=== PATIENT | male | born 1950 | race Caucasian/White ===

== ENCOUNTER 2017-11-08 21:03 | Emergency (ER) | payer MEDICARE, OTHER ==
[~2017-11-08] VITALS: Ht 180.3 cm; Wt 120.2 kg
[~2017-11-08 21:03] MED LIST: ASPIRIN81 M1 PO; BENAZEPRIL-HCT1 EAC2 PO; LANSOPRAZOLE30 MG PO; METFORMIN HCL500 MG PO; NIASPAN500 MG PO; VITAMIN D31000 UNIT PO
[2017-11-08] MEDS ORDERED: JANUMET XR 1001 EACH PO (21:29)
[2017-11-08] MEDS ORDERED: LANSOPRAZOLE30 MG PO (21:30)
[2017-11-08] MEDS ORDERED: ATORVASTATIN CA20 MG PO (21:31)
[2017-11-08] MEDS ORDERED: PROPRANOLOL HCL10 MG PO (21:31)
[2017-11-08 21:45] LABS: BASOPHILS # (AUTO) 0.1 (0.0-0.1); BASOPHILS % 0.5 % (0.0-1.0); EOSINOPHILS # (AUTO) 0.5 (0.0-0.4); EOSINOPHILS % 4.5 % (0.0-6.0); HEMATOCRIT 46.1 % (38.2-49.6); HEMOGLOBIN 15.8 g/dL (14.0-18.0); LYMPHOCYTES # (AUTO) 3.9 (1.0-3.2); MEAN CORPUSCULAR HEMOGLOBIN 31.3 pg (28-32); MEAN CORPUSCULAR HGB CONC 34.3 g/dL (31-35); MEAN CORPUSCULAR VOLUME 91.5 fL (81-99); MONOCYTES # (AUTO) 0.7 (0.2-0.8); MONOCYTES % 6.7 % (4.4-11.3); NEUTROPHILS # (AUTO) 4.9 (2.1-6.9); NEUTROPHILS % 48.7 % (38.7-80.0); PLATELET COUNT 249 x10e3/uL (140-360); RED BLOOD COUNT 5.04 x10e6/uL (4.3-5.7); RED CELL DISTRIBUTION WIDTH 12.7 % (11.7-14.4)
[2017-11-08 22:07] LABS: ALBUMIN 3.6 g/dL (3.5-5.0); ALBUMIN/GLOBULIN RATIO 0.9 (0.8-2.0); ANION GAP 15.6 mmol/L (8-16); CALCIUM 9.9 mg/dL (8.4-10.2); CREATININE, SERUM 1.72 mg/dL (0.72-1.25); POTASSIUM 3.6 mmol/L (3.5-5.1)
[2017-11-08 22:13] LABS: CREATINE KINASE MB 1.8 ng/mL (0-5.0)
--- NOTE | 2017-11-08 22:50 | Diagnostic Imaging Report ---
CHEST SINGLE (PORTABLE), 11/08/2017 9:13 PM Technique: CHEST SINGLE (PORTABLE) Comparison: 01/27/2012 Clinical history: Chest pain Findings: Stable cardiomediastinal silhouette given differences in technique. Low lung volumes without consolidation or edema. No effusion or pneumothorax. Impression: 1. Lines/Tubes: None 2. No acute abnormality. Signed by: Dr Christiane Saenz MD on 11/08/2017 10:47 PM
[2017-11-08 23:03] VITALS: BP 104/62
== END 2017-11-08 23:18 | disposition home or self-care (01) ==
LOC: ER 21:03
DX: R06.09 Other forms of dyspnea (principal); R42 Dizziness and giddiness; I10 Essential (primary) hypertension; E11.9 Type 2 diabetes mellitus without complications; E78.5 Hyperlipidemia, unspecified
CPT/HCPCS: 36415; 71045; 80053; 82550; 82553; 84484; 85025; 93005; 99284

== ENCOUNTER 2018-09-09 21:06 | Emergency (ER) | payer MEDICARE ==
[~2018-09-09] VITALS: Ht 180.3 cm; Wt 120.2 kg
[~2018-09-09 21:06] MED LIST changes: +ATORVASTATIN CA20 MG PO; +JANUMET XR 1001 EACH PO; +PROPRANOLOL HCL10 MG PO
--- OUTSIDE RECORDS SUMMARY | 2018-09-09 21:10 | XMS REPORT ---
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 Allergies, Adverse Reactions, Alerts This patient has no known allergies or adverse reactions. Medications This patient has no known medications. Results Test Description Test Time Test Comments Text Results Atomic Results Result Comments CHEST SINGLE (PORTABLE) 2017-11-08 22:46:00 [place] [address] Patient Name: PANKAJ PEREZ MR #: [id number] : 1950 Age/Sex: 67/M Req #: [id number] [facility] Physician: Ordered by: OBINNA BRADLEY MD Report #: [id number] Location: ER Room/Bed: Procedure: [id number] DX/CHEST SINGLE (PORTABLE) Exam Date: 11/08/17 Exam Time: 2145 REPORT STATUS: Signed CHEST SINGLE (PORTABLE), 11/08/2017 9:13 PM Technique: CHEST SINGLE (PORTABLE) Comparison: 01/27/2012 Clinical history: Chest pain Findings: Stable cardiomediastinal silhouette given differences in technique. Low lung volumes without consolidation or edema. No effusion or pneumothorax. Impression: 1. Lines/Tubes: None 2. No acute abnormality. Signed by: Dr Leopoldo Saenz MD on 11/08/2017 10:47 PM Dictated By: LEOPOLDO SEANZ MD 46 Transcribed By: KATHRYN on 11/08/172246 COPY TO: OBINNA BRADLEY MD RAD, CHEST, 2 VIEWS 2017-10-28 10:45:00 Reason for Exam:->sob FINAL REPORT TECHNIQUE: Frontal and lateral views of the chest. INDICATION: 67-year-old man with shortness of breath. COMPARISON: Chest radiographs 08/30/2012. FINDINGS: LINES/TUBES: None. LUNGS: The lungs are well inflated and clear. PLEURA: No pleural effusion or pneumothorax. Unchanged mild pleural thickening on the left. HEART AND MEDIASTINUM: The cardiomediastinal silhouette is within normal limits. SOFT TISSUES AND BONES: Unremarkable. IMPRESSION:No acute cardiopulmonary abnormalities. No significant change since 08/30/2012. Signed: Belem Alonso MDReport Verified Date/Time: 10/28/2017 10:45:18 Reading Location: [address] Radiology Reading Room
--- OUTSIDE RECORDS SUMMARY | 2018-09-09 21:10 | XMS REPORT | Clinical Summary ---
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 Name Role Phone PCP Unavailable Allergies Not on File Medications Not on file Active Problems Not on file Encounters Care Team Description Date Type Specialty Royer Tomas MD SOB (shortness of breath) 10/28/2017 Hospital Encounter Royer Tomas MD SOB (shortness of breath) (Primary Dx) 10/23/2017 Outside Orders Central Scheduling after 09/08/2017 Social History Date Tobacco Use Types Packs/Day Years Used Never Assessed Sex Assigned at Date Recorded Not on file Industry Job Start Date Occupation Not on file Not on file Not on file Travel End Travel History Travel Start No recent travel history available. Last Filed Vital Signs Not on file Plan of Treatment Not on file Procedures Comments Procedure Name Priority Date/Time Associated Diagnosis XR CHEST 2 VIEWS Routine 10/28/2017 SOB (shortness of breath) 7:39 AM CDT after 09/08/2017 Results * XR Chest 2 Views (10/28/2017 7:39 AM CDT) Specimen Narrative Performed At FINAL REPORT [facility] TECHNIQUE: Frontal and lateral views of the chest. INDICATION: 67-year-old man with shortness of breath. COMPARISON: Chest radiographs 08/30/2012. FINDINGS: LINES/TUBES: None. LUNGS: The lungs are well inflated and clear. PLEURA: No pleural effusion or pneumothorax. Unchanged mild pleural thickening on the left. HEART AND MEDIASTINUM: The cardiomediastinal silhouette is within normal limits. SOFT TISSUES AND BONES: Unremarkable. IMPRESSION: No acute cardiopulmonary abnormalities. No significant change since 08/30/2012. Signed: Belem Alonso MD Report Verified Date/Time:10/28/2017 10:45:18 Reading Location: [facility] [address] [facility] Radiology Reading Room Procedure Note Interface, External Ris In - 10/28/2017 10:47 AM CDT FINAL REPORT TECHNIQUE: Frontal and lateral views of the chest. INDICATION: 67-year-old man with shortness of breath. COMPARISON: Chest radiographs 08/30/2012. FINDINGS: LINES/TUBES: None. LUNGS: The lungs are well inflated and clear. PLEURA: No pleural effusion or pneumothorax. Unchanged mild pleural thickening on the left. HEART AND MEDIASTINUM: The cardiomediastinal silhouette is within normal limits. SOFT TISSUES AND BONES: Unremarkable. IMPRESSION: No acute cardiopulmonary abnormalities. No significant change since 08/30/2012. Signed: Belem Alonso MD Report Verified Date/Time: 10/28/2017 10:45:18 Reading Location: [address] Radiology Reading Room Performing Organization Address City/State/Zipcode Phone Number GE RIS after 09/08/2017 Insurance Payer Benefit Subscriber ID Type Phone Address Plan / Group [facility] xxxxxxxxx MEDICARE MGD CARE MEDICARE HMO
[2018-09-09] MEDS ORDERED: LIDOCAINE 5% PATCH TP ONE (22:15)
[2018-09-09] MEDS ORDERED: HYDROCODONE/APAP 10MG-325MG TAB PO ONE (22:15)
--- NOTE | 2018-09-09 22:56 | Diagnostic Imaging Report ---
EXAMINATION: CHEST SINGLE (PORTABLE) INDICATION: FALL; R/O FRACTURE COMPARISON: Chest radiograph 11/08/2017 FINDINGS: AP view TUBES and LINES: None. LUNGS: Lungs are well inflated. Lungs are clear. There is no evidence of pneumonia or pulmonary edema. PLEURA: No pleural effusion or pneumothorax. HEART AND MEDIASTINUM: The cardiomediastinal silhouette is accentuated due to technique. BONES AND SOFT TISSUES: No acute osseous lesion. Soft tissues are unremarkable. UPPER ABDOMEN: No free air under the diaphragm. IMPRESSION: No acute thoracic abnormality. Similar exam compared to 11/08/2017. Signed by: Oracio Walden DO on 09/09/2018 10:52 PM
--- NOTE | 2018-09-09 22:57 | Diagnostic Imaging Report ---
SHOULDER LEFT COMPLETE - 2 views HISTORY: Pain. COMPARISON: None available. FINDINGS: Bones: No acute displaced fracture. Osseous alignment is within normal limits. Joints: Narrow subacromial space . Degenerative changes in the acromioclavicular joint. Soft tissues: The soft tissues appear unremarkable. IMPRESSION: No displaced fracture. Narrow subacromial space is suspicious for rotator cuff pathology. Degenerative changes in shoulder. Signed by: Oracio Walden DO on 09/09/2018 10:54 PM
[2018-09-09] MEDS ORDERED: ULTRAM50 MG PO (23:28)
== END 2018-09-09 23:45 | disposition home or self-care (01) ==
LOC: ER 21:06
DX: M25.512 Pain in left shoulder (principal); S43.102A Unspecified dislocation of left acromioclavicular joint, initial encounter; W01.0XXA Fall on same level from slipping, tripping and stumbling without subsequent striking against object, initial encounter; Y93.01 Activity, walking, marching and hiking; Y92.830 Public park as the place of occurrence of the external cause
CPT/HCPCS: 71045; 99283

== ENCOUNTER → 2020-05-11 | Day surgery (SDC) | payer MEDICARE ==
[2020-05-08 08:22] LABS: BASOPHILS # (AUTO) 0.1 (0.0-0.1); BASOPHILS % 0.6 % (0.0-1.0); EOSINOPHILS # (AUTO) 0.3 (0.0-0.4); EOSINOPHILS % 4.2 % (0.0-6.0); HEMATOCRIT 42.9 % (38.2-49.6); HEMOGLOBIN 14.6 g/dL (14.0-18.0); LYMPHOCYTES # (AUTO) 2.5 (1.0-3.2); LYMPHOCYTES % 30.8 % (18.0-39.1); MEAN CORPUSCULAR HEMOGLOBIN 30.7 pg (28-32); MEAN CORPUSCULAR VOLUME 90.1 fL (81-99); MONOCYTES # (AUTO) 0.7 (0.2-0.8); MONOCYTES % 8.5 % (4.4-11.3); NEUTROPHILS # (AUTO) 4.4 (2.1-6.9); NEUTROPHILS % 55.4 % (38.7-80.0); PLATELET COUNT 226 x10e3/uL (140-360); RED BLOOD COUNT 4.76 x10e6/uL (4.3-5.7); RED CELL DISTRIBUTION WIDTH 12.3 % (11.7-14.4)
[~2020-05-11] MED LIST changes: +ASPIRIN81 MG PO; +FENTANYL CITRATE/PF 100MCG/2 ML INJ ONE; +HYOSCYAMINE SULFATE 0.5 MG/ML INJ ONE; +KETAMINE HCL INJ 50 MG/ML 10 ML VIAL ONE; +LISINOPRIL-HCT1 EACH PO; +LISINOPRIL10 MG PO; +LIVALO2 MG PO; +MIDAZOLAM HCL 2 MG/2 ML VIAL ONE; +PROPOFOL IV EMULSION 10 MG/ML 20 ML VIAL ONE; +TORSEMIDE10 MG PO; +ULTRAM50 MG PO
[2020-05-11 11:50] VITALS: BP 118/80
== END | disposition home or self-care (01) ==
LOC: OR 07:42
PROVIDERS: ATTEND Internal Medicine Gastroenterology
DX: K29.50 Unspecified chronic gastritis without bleeding (principal); D12.4 Benign neoplasm of descending colon; K31.7 Polyp of stomach and duodenum; K20.90 Esophagitis, unspecified without bleeding; K44.9 Diaphragmatic hernia without obstruction or gangrene; K21.9 Gastro-esophageal reflux disease without esophagitis; K57.30 Diverticulosis of large intestine without perforation or abscess without bleeding; K64.8 Other hemorrhoids; G47.33 Obstructive sleep apnea (adult) (pediatric); I49.3 Ventricular premature depolarization; I10 Essential (primary) hypertension; E78.5 Hyperlipidemia, unspecified; E11.9 Type 2 diabetes mellitus without complications; Z01.810 Encounter for preprocedural cardiovascular examination; Z01.812 Encounter for preprocedural laboratory examination; Z20.822 Contact with and (suspected) exposure to COVID-19; Z79.82 Long term (current) use of aspirin; Z79.84 Long term (current) use of oral hypoglycemic drugs; Z68.36 Body mass index [BMI] 36.0-36.9, adult
CPT/HCPCS: 36415 ×2; 43239; 45380; 45385; 82948; 85025; 93005; J1980; J2250; J2704; J3010; U0002; 45378

== ENCOUNTER 2021-03-15 13:42 | Observation (INO) | payer MEDICARE ==
[~2021-03-15] VITALS: Ht 180.3 cm; Wt 122.5 kg
[2021-03-15] VITALS (7 sets, daily range): BP systolic 136–162; BP diastolic 76–99
[~2021-03-15 13:42] MED LIST changes: -FENTANYL CITRATE/PF 100MCG/2 ML INJ ONE; -HYOSCYAMINE SULFATE 0.5 MG/ML INJ ONE; -KETAMINE HCL INJ 50 MG/ML 10 ML VIAL ONE; -MIDAZOLAM HCL 2 MG/2 ML VIAL ONE; -PROPOFOL IV EMULSION 10 MG/ML 20 ML VIAL ONE
[2021-03-15 14:17] LABS: BASOPHILS # (AUTO) 0.1 (0.0-0.1); BASOPHILS % 0.9 % (0.0-1.0); EOSINOPHILS # (AUTO) 0.3 (0.0-0.4); EOSINOPHILS % 3.9 % (0.0-6.0); HEMOGLOBIN 15.3 g/dL (14.0-18.0); LYMPHOCYTES # (AUTO) 2.9 (1.0-3.2); LYMPHOCYTES % 38.2 % (18.0-39.1); MEAN CORPUSCULAR HEMOGLOBIN 29.4 pg (28-32); MEAN CORPUSCULAR HGB CONC 32.6 g/dL (31-35); MEAN CORPUSCULAR VOLUME 90.4 fL (81-99); MONOCYTES # (AUTO) 0.6 (0.2-0.8); MONOCYTES % 7.4 % (4.4-11.3); NEUTROPHILS # (AUTO) 3.7 (2.1-6.9); NEUTROPHILS % 49.1 % (38.7-80.0); PLATELET COUNT 254 x10e3/uL (140-360); RED CELL DISTRIBUTION WIDTH 12.7 % (11.7-14.4)
[2021-03-15 14:22] LABS: CLARITY,URINE SL CLOUDY (CLEAR); COLOR,URINE YELLOW (YELLOW); KETONES,URINE NEGATIVE (NEGATIVE); LEUKOCYTE ESTERASE ,URINE NEGATIVE (NEGATIVE); NITRITE,URINE NEGATIVE (NEGATIVE); PROTEIN,URINE DIPSTICK NEGATIVE (NEGATIVE); URINE UROBILINOGEN 0.2 mg/dL (0.2 - 1)
[2021-03-15 14:32] LABS: ALBUMIN 3.5 g/dL (3.5-5.0); ALBUMIN/GLOBULIN RATIO 0.9 (0.8-2.0); CALCIUM 9.2 mg/dL (8.4-10.2); CREATININE, SERUM 1.27 mg/dL (0.72-1.25)
[2021-03-15 14:34] LABS: BACTERIA,URINE RARE /HPF
[2021-03-15] MEDS ORDERED: DEXTROSE 50% SYRINGE 50 ML IV PRN (17:45)
[2021-03-15] MEDS: SODIUM CHLORIDE 0.9% 1000ML 1,000 ML IV SCH (17:45)
[2021-03-15] MEDS: INSULIN LISPRO 100 UNIT/1 ML 3ML VIAL SQ SCH (20:48)
[2021-03-15] MEDS ORDERED: NON-FORMULARY MEDICATION (Lansoprazole 30 MG) PO SCH (21:45)
[2021-03-16 00:30] VITALS: BP 133/79
[2021-03-16] MEDS: SODIUM CHLORIDE 0.9% 1000ML 1,000 ML IV SCH (01:57)
[2021-03-16 05:14] VITALS: BP 132/81
[2021-03-16] MEDS ORDERED: LISINOPRIL10 MG PO (05:49)
[2021-03-16] MEDS ORDERED: PANTOPRAZOLE SOD 40 MG TABEC PO PRN (06:00)
[2021-03-16 06:51] LABS: BASOPHILS # (AUTO) 0.1 (0.0-0.1); BASOPHILS % 0.8 % (0.0-1.0); EOSINOPHILS # (AUTO) 0.2 (0.0-0.4); EOSINOPHILS % 3.5 % (0.0-6.0); HEMATOCRIT 42.6 % (38.2-49.6); LYMPHOCYTES # (AUTO) 2.4 (1.0-3.2); LYMPHOCYTES % 39.3 % (18.0-39.1); MEAN CORPUSCULAR HEMOGLOBIN 29.4 pg (28-32); MEAN CORPUSCULAR HGB CONC 32.9 g/dL (31-35); MEAN CORPUSCULAR VOLUME 89.5 fL (81-99); MONOCYTES # (AUTO) 0.6 (0.2-0.8); MONOCYTES % 8.9 % (4.4-11.3); NEUTROPHILS # (AUTO) 2.9 (2.1-6.9); NEUTROPHILS % 47.2 % (38.7-80.0); PLATELET COUNT 180 x10e3/uL (140-360); RED BLOOD COUNT 4.76 x10e6/uL (4.3-5.7); RED CELL DISTRIBUTION WIDTH 12.6 % (11.7-14.4)
[2021-03-16 07:16] LABS: CALCIUM 8.6 mg/dL (8.4-10.2); CREATININE, SERUM 1.01 mg/dL (0.72-1.25)
[2021-03-16] MEDS: INSULIN LISPRO 100 UNIT/1 ML 3ML VIAL SQ SCH ×2 (07:30→11:30)
[2021-03-16 08:15] VITALS: BP 157/77
[2021-03-16] MEDS ORDERED: PROPRANOLOL HCL 10 MG TAB PO SCH (09:00)
[2021-03-16] MEDS: METFORMIN HCL 500 MG TAB PO SCH ×2 (09:58→10:30)
[2021-03-16] MEDS: SITAGLIPTIN 100 MG TAB PO SCH ×2 (09:59→10:30)
[2021-03-16 11:30] VITALS: BP 152/77
[2021-03-16] MEDS ORDERED: AMLODIPINE BESYL5 MG PO (13:31)
[2021-03-16] MEDS ORDERED: ASPIRIN 81 MG CHEW TAB PO SCH (21:00)
== END 2021-03-16 15:02 | disposition home or self-care (01) ==
LOC: ER 13:47 → ERHOLD 14:51 → MED/SURG2 16:18
DX: R55 Syncope and collapse (principal); I10 Essential (primary) hypertension; E11.9 Type 2 diabetes mellitus without complications; E78.5 Hyperlipidemia, unspecified; N28.9 Disorder of kidney and ureter, unspecified; I16.0 Hypertensive urgency; E66.9 Obesity, unspecified; Z68.37 Body mass index [BMI] 37.0-37.9, adult; E86.1 Hypovolemia; G25.0 Essential tremor; Z79.82 Long term (current) use of aspirin; Z20.822 Contact with and (suspected) exposure to COVID-19
CPT/HCPCS: 36415 ×2; 70450; 71045; 80048; 80053; 81001; 82948 ×2; 84484; 85025 ×2; 93005; 99284; G0378 ×2; J7030 ×2; U0002

== ENCOUNTER → 2022-01-27 | Outpatient (CLI) | payer MEDICARE ==
[~2022-01-27] MED LIST changes: +AMLODIPINE BESYL5 MG PO
== END ==
LOC: RAD 12:55
DX: M79.605 Pain in left leg (principal); M79.89 Other specified soft tissue disorders; E11.9 Type 2 diabetes mellitus without complications; I10 Essential (primary) hypertension

== ENCOUNTER → 2022-01-28 | Outpatient (CLI) | payer MEDICARE | LOC: RAD 08:41 | DX: M79.605 Pain in left leg (principal); M79.89 Other specified soft tissue disorders; E11.9 Type 2 diabetes mellitus without complications; I10 Essential (primary) hypertension | CPT/HCPCS: 93971 ==

== ENCOUNTER 2023-10-15 21:53 | Emergency (ER) | payer MEDICARE ==
[~2023-10-15] VITALS: Ht 177.8 cm; Wt 105.2 kg
[2023-10-15 22:21] VITALS: TEMP 98.2
[2023-10-15 23:01] LABS: BASOPHILS % 0.3 % (0.0-1.0); EOSINOPHILS # (AUTO) 1.1 (0.0-0.4); HEMOGLOBIN 15.3 g/dL (14.0-18.0); LYMPHOCYTES # (AUTO) 3.7 (1.0-3.2); LYMPHOCYTES % 39.5 % (18.0-39.1); MEAN CORPUSCULAR HEMOGLOBIN 31.3 pg (28-32); MONOCYTES # (AUTO) 0.7 (0.2-0.8); MONOCYTES % 7.6 % (4.4-11.3); NEUTROPHILS # (AUTO) 3.7 (2.1-6.9); PLATELET COUNT 218 x10e3/uL (140-360); RED BLOOD COUNT 4.89 x10e6/uL (4.3-5.7); RED CELL DISTRIBUTION WIDTH 13.2 % (11.7-14.4); WHITE BLOOD COUNT 9.36 x10e3/uL (4.8-10.8)
[2023-10-15] MEDS: SODIUM CHLORIDE 0.9% 1000ML 1,000 ML IV ONE (23:05)
[2023-10-15 23:30] LABS: ALBUMIN 3.2 g/dL (3.5-5.0); ANION GAP 11.9 mmol/L (8-16); BILIRUBIN,TOTAL 0.5 mg/dL (0.2-1.2); CREATININE, SERUM 1.42 mg/dL (0.72-1.25); POTASSIUM 3.9 mmol/L (3.5-5.1); TOTAL PROTEIN 6.4 g/dL (6.5-8.1)
[2023-10-16] MEDS: SODIUM CHLORIDE 0.9% 1000ML 1,000 ML IV ONE (00:01)
[2023-10-16] MEDS ORDERED: SODIUM CHLORIDE 0.9% 1000ML 1,000 ML ONE (00:03)
[2023-10-16 01:00] VITALS: PULSE 62; RESP 18
[2023-10-16 01:52] VITALS: BP 92/63; O2SAT 98
== END 2023-10-16 01:30 | disposition home or self-care (01) ==
LOC: ER 21:58
DX: I95.1 Orthostatic hypotension (principal); E86.9 Volume depletion, unspecified; R42 Dizziness and giddiness; M54.50 Low back pain, unspecified; E11.65 Type 2 diabetes mellitus with hyperglycemia; I10 Essential (primary) hypertension; E78.5 Hyperlipidemia, unspecified; K21.9 Gastro-esophageal reflux disease without esophagitis; R94.31 Abnormal electrocardiogram [ECG] [EKG]
CPT/HCPCS: 36415; 80053; 82948; 84484; 85025; 93005; 99284; J7030 ×2

== ENCOUNTER 2024-09-19 09:46 | Observation (INO) | payer MEDICARE ==
[2024-09-19] VITALS (8 sets, daily range): BP systolic 114–140; BP diastolic 61–79; PULSE 60–64; RESP 16–22; TEMP 97.3–98.1; O2SAT 98–100
[~2024-09-19] VITALS: Ht 177.8 cm; Wt 108.9 kg
[2024-09-19] MEDS: SODIUM CHLORIDE 0.9% 1000ML 1,000 ML IV STA (11:49)
[2024-09-19 11:52] LABS: BASOPHILS % 0.4 % (0.0-1.0); EOSINOPHILS % 2.1 % (0.0-6.0); LYMPHOCYTES % 35.1 % (18.0-39.1); MONOCYTES % 8.2 % (4.4-11.3); NEUTROPHILS % 53.8 % (38.7-80.0); RED CELL DISTRIBUTION WIDTH 12.9 % (11.7-14.4)
[2024-09-19 12:10] LABS: INR 0.89
[2024-09-19 12:22] LABS: EST GLOMERULAR FILTRATION RATE 68.0 ML/MIN (>=60)
[2024-09-19] MEDS: SODIUM CHLORIDE 0.9% 1000ML 1,000 ML IV SCH (13:24)
[2024-09-19] MEDS: ASPIRIN 81 MG CHEW TAB PO ONE (13:24)
[2024-09-19] MEDS ORDERED: PRIMIDONE125 MG PO (13:26)
[2024-09-19] MEDS ORDERED: OLMESARTAN-HCT1 EAC1 PO (13:26)
[2024-09-20 00:13] VITALS: BP 111/58; PULSE 56; RESP 18; TEMP 98; O2SAT 99
[2024-09-20 05:32] VITALS: BP 122/64; PULSE 59; RESP 20; TEMP 97.9; O2SAT 98
[2024-09-20 07:01] LABS: BASOPHILS % 0.6 % (0.0-1.0); EOSINOPHILS % 4.0 % (0.0-6.0); LYMPHOCYTES % 35.6 % (18.0-39.1); MONOCYTES % 6.4 % (4.4-11.3); NEUTROPHILS % 53.1 % (38.7-80.0); RED CELL DISTRIBUTION WIDTH 12.6 % (11.7-14.4)
[2024-09-20 07:37] LABS: CHOL/HDL RATIO 3.9 (3.9-4.7); EST GLOMERULAR FILTRATION RATE 79.0 ML/MIN (>=60)
[2024-09-20 07:57] LABS: LDL CHOLESTEROL 71.0 MG/DL (60-130)
[2024-09-20 08:21] VITALS: BP 140/91; PULSE 60; RESP 20; TEMP 98; O2SAT 99
[2024-09-22] MEDS ORDERED: [UNRECOGNIZED DRUG - OTHER] (15:19)
[2024-09-22] MEDS ORDERED: REZDIFFRA PO (15:20)
[2024-09-22] MEDS ORDERED: LOSARTAN POTASS25 MG PO (15:26)
[2024-09-22] MEDS ORDERED: VASCEPA0.5 GM (15:26)
[2024-09-22] MEDS ORDERED: OZEMPIC2 MG/0.75 (15:26)
[2024-09-22] MEDS ORDERED: LANSOPRAZOLE30 MG (15:26)
[2024-09-22] MEDS ORDERED: JARDIANCE10 MG (15:26)
== END 2024-09-20 11:00 | disposition home or self-care (01) ==
LOC: ER 11:11 → ERHOLD 12:11 → MED/SURG2 12:52
PROVIDERS: ADMIT Internal Medicine; ATTEND Internal Medicine
DX: R55 Syncope and collapse (principal); N28.9 Disorder of kidney and ureter, unspecified; T46.5X5A Adverse effect of other antihypertensive drugs, initial encounter; T50.2X5A Adverse effect of carbonic-anhydrase inhibitors, benzothiadiazides and other diuretics, initial encounter; R79.89 Other specified abnormal findings of blood chemistry; I13.0 Hypertensive heart and chronic kidney disease with heart failure and stage 1 through stage 4 chronic kidney disease, or unspecified chronic kidney disease; N18.2 Chronic kidney disease, stage 2 (mild); I50.32 Chronic diastolic (congestive) heart failure; E11.9 Type 2 diabetes mellitus without complications; Z79.84 Long term (current) use of oral hypoglycemic drugs; G47.33 Obstructive sleep apnea (adult) (pediatric); E78.5 Hyperlipidemia, unspecified; K76.0 Fatty (change of) liver, not elsewhere classified
CPT/HCPCS: 36415 ×2; 71045; 80053 ×2; 80061; 82550 ×2; 82948 ×2; 83735; 84443; 84484 ×2; 85025 ×2; 85610; 85730; 93005; 99284; G0378 ×2; J7030 ×2

== ENCOUNTER → 2024-10-06 | Day surgery (SDC) | payer MEDICARE ==
[~2024-10-06] MED LIST changes: +HYOSCYAMINE SULFATE 0.5 MG/ML INJ ONE; +JARDIANCE10 MG; +LANSOPRAZOLE30 MG; +LIDOCAINE HCL 2% LOCAL INJ 5 ML SDV VIAL INJ ONE; +LOSARTAN POTASS25 MG PO; +METOCLOPRAMIDE HCL 10 MG/2ML VIAL ONE; +OLMESARTAN-HCT1 EAC1 PO; +OZEMPIC2 MG/0.75; +PRIMIDONE125 MG PO; +PROPOFOL IV EMULSION 10 MG/ML 20 ML VIAL ONE; +PROPOFOL IV EMULSION 50 ML IV ONE; +REZDIFFRA PO; +VASCEPA0.5 GM; +[UNRECOGNIZED DRUG - OTHER]
[2024-10-06] MEDS: LACTATED RINGER'S 1,000 ML ONE (08:57)
[2024-10-06 11:24] VITALS: TEMP 97.2
[2024-10-06 12:00] VITALS: BP 115/73; PULSE 62; RESP 16; O2SAT 98
== END | disposition home or self-care (01) ==
LOC: OR 08:15
PROVIDERS: ATTEND Internal Medicine Gastroenterology
DX: Z12.11 Encounter for screening for malignant neoplasm of colon (principal); K57.30 Diverticulosis of large intestine without perforation or abscess without bleeding; K64.8 Other hemorrhoids; K21.00 Gastro-esophageal reflux disease with esophagitis, without bleeding; K29.50 Unspecified chronic gastritis without bleeding; K44.9 Diaphragmatic hernia without obstruction or gangrene; I10 Essential (primary) hypertension; G47.33 Obstructive sleep apnea (adult) (pediatric); E11.9 Type 2 diabetes mellitus without complications; K76.0 Fatty (change of) liver, not elsewhere classified; Z86.0100 Personal history of colon polyps, unspecified; Z79.84 Long term (current) use of oral hypoglycemic drugs; Z79.899 Other long term (current) drug therapy; Z79.85 Long-term (current) use of injectable non-insulin antidiabetic drugs; Z88.6 Allergy status to analgesic agent; Z68.33 Body mass index [BMI] 33.0-33.9, adult
CPT/HCPCS: 43239; G0105; 36415; 45378; 82948; J1980; J2003; J2470; J2765